=== PATIENT | female | born 1950 | race Caucasian/White ===

== ENCOUNTER 2021-11-23 15:21 | Observation (INO) ==
--- NOTE | 2021-11-23 15:13 | RAD ---
HISTORYABDOMINAL PAIN, DIVERTICULITIS .br Relevant Clinical InformationSTUDYACUTE ABDOMEN SERIESCOMPARISONFINDINGSThe trachea is midline. The cardiac silhouette is [unremarkable]. [The lungs are clear without focal mass or consolidation. There is no effusion or pneumothorax.] [The bony thorax is unremarkable].Flat plate and upright evaluation of the abdomen demonstrates a [normal bowel gas pattern]. There is no pneumoperitoneum. No pathological soft tissue mass or calcification can be observed. The bony structures are grossly intact.IMPRESSION1. [No acute cardiopulmonary disease.]2. [No evidence for acute abdominal pathology identified.]Electronically signed by: Alexandre Lazo (Nov 23, 2021 15:11:58)
[2021-11-23 15:20] LABS: BASOPHILS # (AUTO) 0.1 X10^3/uL (0.0-0.1); BASOPHILS % (AUTO) 0.7 % (0.2-1.0); EOSINOPHILS # (AUTO) 0.1 x10^3/uL (0.0-0.2); EOSINOPHILS % (AUTO) 0.7 % (0.9-2.9); HEMATOCRIT 38.9 % (36.0-47.0); HEMOGLOBIN 13.3 g/dL (12.0-16.0); LYMPHOCYTES # (AUTO) 1.5 X10^3/uL (1.3-2.9); LYMPHOCYTES % (AUTO) 11.9 % (21.0-51.0); MEAN CORPUSCULAR HEMOGLOBIN 29.9 pg (27.0-34.0); MEAN CORPUSCULAR HGB CONC 34.2 g/dL (33.0-35.0); MEAN CORPUSCULAR VOLUME 87.4 fL (80.0-100.0); MEAN PLATELET VOLUME 8.1 fL (7.4-11.0); MONOCYTES # (AUTO) 0.9 x10^3/uL (0.3-0.8); MONOCYTES % (AUTO) 6.8 % (0.0-13.0); NEUTROPHILS # (AUTO) 10.3 x10^3/uL (2.2-4.8); NEUTROPHILS % (AUTO) 79.9 % (42.0-75.0); RED BLOOD COUNT 4.45 X10^6/uL (3.5-5.4); RED CELL DISTRIBUTION WIDTH 12.8 % (11.6-16.5); WHITE BLOOD COUNT 12.8 X10^3/uL (3.6-10.0)
[2021-11-23 15:32] LABS: ALANINE AMINOTRANSFERASE 23 Units/L (12-78); ALBUMIN 3.9 g/dL (3.4-5.0); ALKALINE PHOSPHATASE 64 Units/L (46-116); ASPARTATE AMINO TRANSFERASE 17 Units/L (15-37); BLOOD UREA NITROGEN 34 mg/dL (7-18); CALCIUM 9.5 mg/dL (8.5-10.1); CARBON DIOXIDE 32.2 mmol/L (21-32); CHLORIDE 99 mmol/L (98-107); CREATININE 1.39 mg/dL (0.55-1.02); SODIUM 139 mmol/L (136-145); TOTAL PROTEIN 8.3 g/dL (6.4-8.2); eGFR NON BLACK RACES 40 (>60)
[2021-11-23] MEDS ORDERED: ZOFRAN INJ 4 MG VIAL IVP PRN (15:51)
[2021-11-23] MEDS ORDERED: MORPHINE SULFATE INJ 2 MG INJ IVP PRN (15:51)
[2021-11-23 16:05] VITALS: BMI 28.3
[2021-11-23] MEDS ORDERED: NS 100 ML IV 100 ML ONE (16:05)
[2021-11-23] MEDS: CIPRO IV 400 MG PREMIX* 400 MG/200 ML IV.SOLN. IV SCH ×2 (16:13→21:10)
[2021-11-23] MEDS: PROTONIX INJ 40 MG VIAL IVP SCH (16:14)
[2021-11-23] MEDS: ZOSYN VIAL 3.375 GRAMS 3.375 G in NS 100 ML IV 100 ML IV SCH ×2 (16:14→22:20)
[2021-11-23 17:19] LABS: APPEARANCE,URINE CLEAR (CLEAR); COLOR,URINE ORANGE (YELLOW)
[2021-11-23 17:30] LABS: BACTERIA,URINE TRACE /HPF (NEGATIVE); SQUAMOUS EPITHELIAL CELL,UR RARE /HPF (NEGATIVE)
--- NOTE | 2021-11-23 17:36 | DR.H&P ---
H&P - History & Physical for Day of: H&P Date: 11/23/21 - Chief Complaint Chief Complaint: left side and stomach pain, "feels like im having a miscarriage" - History of Present Illness History of Present Illness: PT IS 71 WF DIRECT ADMIT FROM DR UPTON OFFICE WITH CO LEFT FLANK PAIN STARTED ON 11/15. PT REPORTS CO URINARY TRACT IN FECTION AND WAS STARTED ON CIPRO PO, CHANGED TO DOXYCYLINE ON 11/17. PT HAD CT ABD/PELVIS RESULTING IN DIVERTICULITIS WITH POSSIBLE ABSCESS. PT WAS ADMITTED FOR TREATMENT OF UNCONTROLLED PAIN WITH FAILURE TO IMPROVE WITH PO ANTIBIOTICS. PT HAS PMH OF HTN, GERD, OA. - Past Medical History Past Medical History: Anxiety, Arthritis, GERD, Hypertension - Past Surgical History Surgical History: , Hysterectomy, Ortho Surgery, Thyroidectomy, Other - Family History Family Medical History: Diabetes Mellitus, Cancer, Hypertension - Social History Does patient currently use any type of tobacco product: No Have you used tobacco products in the last 12 months: No Type of Tobacco Use: None Does any household member use tobacco: No Alcohol Use: None Drug Use: None Prescription drug monitoring program results: PDMP reviewed and no concerns identified - Medications Home Medications: No Known Drug Allergies Allergy (Verified 11/23/21 16:08) - Review of Systems Constitutional: Weakness, Malaise Eyes: No Symptoms Reported ENT: No Symptoms Reported Respiratory: No Symptoms Reported Gastrointestinal: Nausea, Abdominal Pain Genitourinary: Frequency Musculoskeletal: Back Pain Skin: No Symptoms Reported Neurological: No Symptoms Reported - Physical Exam Vital Signs: Pulse Rate 89 Respiratory Rate 17 Blood Pressure 135/69 O2 Sat by Pulse Oximetry 97 Oriented: Normal Eyes: Normal Ear: Normal Nose: Normal Throat: Normal Respiratory: RLL Diminished, LLL Diminished Cardiovascular: Normal : Normal Auscultation: Bowel Sounds: Normal Palpation: Normal Tenderness: Diffuse, LUQ Skin: Normal Musculoskeletal: Back:Lumbar Psychiatric: Anxiety Affect: Anxious Speech Pattern: Clear, Appropriate - Assessment/Plan (1) Acute diverticulitis Status: Acute Plan: ADMIT, IV ATBX, IV HYDRATION. PAIN AND NAUSEA CONTROL. CONSULT DR OLMOS FOR SURGICAL EVALUATION. NPO UNTIL CONSULT, CONFIRM HOME MEDICATION. ABD SERIES ON ADMISSION, UA AND UC (2) GERD (gastroesophageal reflux disease) Status: Acute (3) Osteoarthritis Status: Acute (4) DOMINICK (generalized anxiety disorder) Status: Acute - Allergies Allergies/Adverse Reactions: Allergies Allergy/AdvReac Type Severity Reaction Status Date / Time No Known Drug Allergies Allergy Verified 11/23/21 16:08
[2021-11-23] MEDS ORDERED: XANAX PO PRN (17:38)
[2021-11-23] MEDS: NS 1,000 ML IV 1,000 ML IV SCH (18:11)
--- NOTE | 2021-11-24 02:08 | CT ---
PROCEDURE: CT Abdomen and Pelvis with Contrast .HISTORY: Patient states that she has had 10/10 pain in her lower left abdomen. She states that this pain has been persistant for roughly two weeks now. She is here for further evaluation. .TECHNIQUE: Axial images were performed through the abdomen and pelvis with the administration of IV contrast with multiplanar reformations . Oral contrast was administered. Dose reduction techniques including Automated Exposure Control (AEC) and adjustment of mA and kV were utilized .COMPARISON: 11/21/2021.TECHNICAL QUALITY: Satisfactory .FINDINGS:Clear lung bases.Liver, spleen, adrenals, pancreas show no significant abnormality.Kidneys show no masses or obstruction.Normal biliary tract.No ascites or pneumoperitoneum.Mild atherosclerosis aorta.No lymphadenopathy.There there remains a giant colonic diverticulum with fecal matter and inflammation involving sigmoid colon measuring 4.7 cm maximum dimension. The amount of inflammation as improved compared to previous CT from 3 days ago. No evidence of abscess or perforation. Mild colonic diverticulosis remainder of the colon. No bowel obstruction and normal appendix.Pelvis shows no masses or free fluid with previous hysterectomy. Normal urinary bladder.No acute bony abnormality.IMPRESSION:1. Some improvement in diverticulitis involving giant sigmoid diverticulum compared to previous study with no perforation or abscess.2. No other significant abnormality identified.Electronically signed by: Chase Lazcano (Nov 24, 2021 02:06:47)
[2021-11-24] MEDS: ZOSYN VIAL 3.375 GRAMS 3.375 G in NS 100 ML IV 100 ML IV SCH (05:15)
[2021-11-24 06:56] LABS: BASOPHILS % (AUTO) 0.4 % (0.2-1.0); EOSINOPHILS # (AUTO) 0.1 x10^3/uL (0.0-0.2); HEMATOCRIT 33.1 % (36.0-47.0); HEMOGLOBIN 11.4 g/dL (12.0-16.0); LYMPHOCYTES # (AUTO) 1.6 X10^3/uL (1.3-2.9); LYMPHOCYTES % (AUTO) 15.5 % (21.0-51.0); MEAN CORPUSCULAR HGB CONC 34.3 g/dL (33.0-35.0); MEAN CORPUSCULAR VOLUME 87.3 fL (80.0-100.0); MEAN PLATELET VOLUME 8.2 fL (7.4-11.0); MONOCYTES # (AUTO) 0.8 x10^3/uL (0.3-0.8); MONOCYTES % (AUTO) 8.2 % (0.0-13.0); NEUTROPHILS # (AUTO) 7.5 x10^3/uL (2.2-4.8); NEUTROPHILS % (AUTO) 74.9 % (42.0-75.0); RED BLOOD COUNT 3.79 X10^6/uL (3.5-5.4); RED CELL DISTRIBUTION WIDTH 13.1 % (11.6-16.5)
[2021-11-24 07:07] LABS: ALANINE AMINOTRANSFERASE 19 Units/L (12-78); ALBUMIN 2.9 g/dL (3.4-5.0); ALKALINE PHOSPHATASE 52 Units/L (46-116); ASPARTATE AMINO TRANSFERASE 14 Units/L (15-37); BLOOD UREA NITROGEN 26 mg/dL (7-18); CALCIUM 8.6 mg/dL (8.5-10.1); CARBON DIOXIDE 29.9 mmol/L (21-32); CHLORIDE 102 mmol/L (98-107); COR CA(FOR HYPOALB) 9.5 mg/dL (8.5-10.1); CREATININE 1.33 mg/dL (0.55-1.02); SODIUM 139 mmol/L (136-145); TOTAL PROTEIN 6.6 g/dL (6.4-8.2); eGFR NON BLACK RACES 42 (>60)
[2021-11-24] MEDS ORDERED: LOVENOX INJ 40 MG SYR SC SCH (09:00)
[2021-11-24] MEDS: NS 1,000 ML IV 1,000 ML IV SCH (09:20)
[2021-11-24] MEDS: PROTONIX INJ 40 MG VIAL IVP SCH (09:31)
[2021-11-24] MEDS: CIPRO IV 400 MG PREMIX* 400 MG/200 ML IV.SOLN. IV SCH (09:31)
[2021-11-24 13:45] VITALS: BP 126/61
== END 2021-11-24 13:45 | disposition home or self-care (01) ==
LOC: U → ICU 15:21
PROVIDERS: ADMIT Internal Medicine; ATTEND Internal Medicine
DX: F41.8 Other specified anxiety disorders; K57.32 Diverticulitis of large intestine without perforation or abscess without bleeding; M19.90 Unspecified osteoarthritis, unspecified site; Z20.822 Contact with and (suspected) exposure to COVID-19; R10.84 Generalized abdominal pain; K21.9 Gastro-esophageal reflux disease without esophagitis; I10 Essential (primary) hypertension